=== PATIENT | female | born 1980 | race Caucasian/White ===

== ENCOUNTER 2021-06-15 19:41 | Emergency (ER) | payer MEDICARE, OTHER ==
[~2021-06-15 19:41] MED LIST: BENTYL10 MG PO; CELEBREX **OUT100 MG PO; CELECOXIB50 MG PO; CIPRO500 MG PO; COUMADIN5 MG PO; CYPROHEPTADINE H4 M1 PO; CYPROHEPTADINE H4 MG PO; FLAGYL500 MG PO; FLORA-Q; HYDROCODON-ACE1 EAC4 PO; METHOCARBAMOL500 MG PO; METRONIDAZOLE500 MG PO; NORCO 5-325 TA1 EACH PO; PREDNISONE 10MG10 MG PO; PREDNISONE 20MG20 MG PO; PREDNISONE20 MG PO; PRILOSEC20 MG PO; SKELAXIN800 MG PO; STELARA90 MG/1 ML SC; TRAMADOL HCL50 MG PO; ZOFRAN4 MG PO
[2021-06-15 21:09] LABS: BASOPHIL 0.4 % (0-2); EOSINOPHIL 0.8 % (0-5); HCT 32.7 % (37.0-47.0); HGB 9.6 g/dl (12.5-16.0); LYMPHOCYTE 27.2 % (15-48); MCH 23.7 pg (25.0-31.0); MCHC 29.4 g/dL (32.0-36.0); MCV 80.7 fL (78.0-100.0); MPV 9.1 fL (6.0-9.5); NEUTROPHIL 63.4 % (41-80); NRBC 0; PLT 377 K/uL (150-400); RBC 4.05 M/uL (4.20-5.40); RDW 20.7 % (11.5-14.0); WBC 10.7 K/uL (4.0-10.5)
[2021-06-15 21:20] LABS: ALBUMIN 3.1 g/dL (3.4-5.0); BILIRUBIN - TOTAL 0.2 mg/dL (0.2-1.0); BUN/CREAT RATIO (CALC) 17.1 RATIO; CREATININE 0.76 mg/dL (0.51-0.95); GLOBULIN (CALCULATION) 4.2 g/dL; POTASSIUM 3.7 mmol/L (3.5-5.1); TOTAL PROTEIN 7.3 g/dL (6.4-8.2)
[2021-06-15 21:22] LABS: BILIRUBIN NEGATIVE (NEGATIVE); BLOOD 2+ Ery/uL (NEGATIVE); CLARITY CLEAR (CLEAR); COLOR YELLOW (YELLOW); GLUCOSE (U) NORMAL (NORMAL); LEUKOCYTES NEGATIVE Leu/uL (NEGATIVE); NITRITE NEGATIVE (NEGATIVE); PROTEIN NEGATIVE (NEGATIVE); UROBILINOGEN 0.2 mg/dL (0.2-1.0)
[2021-06-15 21:42] LABS: CALCIUM OXALATE CRYSTALS TRACE
[2021-06-15 21:43] LABS: BACTERIA 1+
[2021-06-15 21:44] LABS: URINARY RBC RARE
== END 2021-06-16 03:55 | disposition other institution (70) ==
LOC: FER 19:41
PROVIDERS: Nurse Practitioner Family
DX: R10.9 Unspecified abdominal pain (principal)
CPT/HCPCS: 36415; 80053; 81001; 82150; 83605; 83690; 85025; J2270; J2405; J7030; Q9967; U0002

== ENCOUNTER 2022-01-02 21:48 | Emergency (ER) | payer MEDICARE, OTHER ==
[~2022-01-02 21:48] MED LIST changes: +ONDANSETRON ODT4 MG PO; +PHENERGAN25 M1 PO
[2022-01-03 00:43] LABS: BASOPHIL 0.1 % (0-2); EOSINOPHIL 0 % (0-5); HCT 35.1 % (37.0-47.0); HGB 11.5 g/dl (12.5-16.0); LYMPHOCYTE 25.9 % (15-48); MCH 30.1 pg (25.0-31.0); MCHC 32.8 g/dL (32.0-36.0); MCV 91.9 fL (78.0-100.0); MONOCYTE 3.3 % (0-12); MPV 9.8 fL (6.0-9.5); NEUTROPHIL 70.1 % (41-80); NRBC 0; PLT 262 K/uL (150-400); RBC 3.82 M/uL (4.20-5.40); RDW 15.3 % (11.5-14.0)
[2022-01-03 00:44] LABS: WBC 7.8 K/uL (4.0-10.5)
[2022-01-03 00:45] LABS: BILIRUBIN NEGATIVE (NEGATIVE); BLOOD 1+ Ery/uL (NEGATIVE); CLARITY CLEAR (CLEAR); COLOR YELLOW (YELLOW); GLUCOSE (U) NORMAL (NORMAL); LEUKOCYTES NEGATIVE Leu/uL (NEGATIVE); NITRITE NEGATIVE (NEGATIVE); PROTEIN NEGATIVE (NEGATIVE); SPECIFIC GRAVITY 1.015 (1.001-1.030); UROBILINOGEN 0.2 mg/dL (0.2-1.0); pH 6.5 (5.0-9.0)
[2022-01-03 00:51] LABS: BACTERIA TRACE; MUCOUS TRACE; URINARY WBC RARE
[2022-01-03 00:52] LABS: ALBUMIN 3.1 g/dL (3.4-5.0); BILIRUBIN - TOTAL 0.1 mg/dL (0.2-1.0); BUN/CREAT RATIO (CALC) 11.5 RATIO; CREATININE 0.87 mg/dL (0.51-0.95); POTASSIUM 3.5 mmol/L (3.5-5.1); TOTAL PROTEIN 7.1 g/dL (6.4-8.2)
[2022-01-03] MEDS ORDERED: PERCOCET 5-3251 EACH PO (03:50)
== END 2022-01-03 04:51 | disposition home or self-care (01) ==
LOC: FER 21:48
PROVIDERS: Internal Medicine
DX: K63.89 Other specified diseases of intestine (principal); R11.2 Nausea with vomiting, unspecified
CPT/HCPCS: 36415; 80053; 81001; 83690; 84145; 85025; J1170; J1642; J2405; J2550; J7030; Q9967

== ENCOUNTER 2022-01-29 19:10 | Emergency (ER) | payer OTHER, MEDICARE ==
[~2022-01-29 19:10] MED LIST changes: +PERCOCET 5-3251 EACH PO
[2022-01-29] MEDS ORDERED: KEFLEX250 MG PO (21:54)
== END 2022-01-29 21:58 | disposition home or self-care (01) ==
LOC: FER 19:10
DX: L03.114 Cellulitis of left upper limb (principal)
CPT/HCPCS: 73130

== ENCOUNTER 2022-05-14 15:51 | Emergency (ER) | payer MEDICARE, OTHER ==
[~2022-05-14 15:51] MED LIST changes: +3IN1 COMMODE; +COUMARIN1 GM PO; +KEFLEX250 MG PO; +MARINOL5 MG PO; +NEURONTIN100 MG PO; +NEURONTIN300 MG PO; +PHENERGAN12.5 M1 PO; +WARFARIN SODIUM3 MG PO
[2022-05-14 17:19] LABS: BASOPHIL 0.1 % (0-2); EOSINOPHIL 0.1 % (0-5); HCT 33.7 % (37.0-47.0); HGB 10.5 g/dl (12.5-16.0); LYMPHOCYTE 10.5 % (15-48); MCH 24.8 pg (25.0-31.0); MCHC 31.2 g/dL (32.0-36.0); MCV 79.7 fL (78.0-100.0); MONOCYTE 3.9 % (0-12); MPV 8.7 fL (6.0-9.5); NEUTROPHIL 84.3 % (41-80); NRBC 0; PLT 361 K/uL (150-400); RBC 4.23 M/uL (4.20-5.40); RDW 20.2 % (11.5-14.0)
[2022-05-14 17:37] LABS: WBC 30.8 K/uL (4.0-10.5)
[2022-05-14 17:41] LABS: LACTIC ACID 1.5 mmol/L (0.4-1.9)
[2022-05-14 17:53] LABS: BILIRUBIN NEGATIVE (NEGATIVE); BLOOD NEGATIVE Ery/uL (NEGATIVE); CLARITY CLEAR (CLEAR); COLOR YELLOW (YELLOW); GLUCOSE (U) NORMAL (NORMAL); LEUKOCYTES TRACE Leu/uL (NEGATIVE); NITRITE NEGATIVE (NEGATIVE); PROTEIN NEGATIVE (NEGATIVE); SPECIFIC GRAVITY 1.015 (1.001-1.030); UROBILINOGEN 0.2 mg/dL (0.2-1.0); pH 7.5 (5.0-9.0)
[2022-05-14 18:28] LABS: ALBUMIN 3.1 g/dL (3.4-5.0); BILIRUBIN - TOTAL 0.2 mg/dL (0.2-1.0); BUN/CREAT RATIO (CALC) 15.9 RATIO; CREATININE 0.69 mg/dL (0.51-0.95); GLOBULIN (CALCULATION) 3.2 g/dL; POTASSIUM 4.8 mmol/L (3.5-5.1); TOTAL PROTEIN 6.3 g/dL (6.4-8.2)
[2022-05-14 18:56] LABS: LYMPHOCYTE(M) 16 % (15-48); MONOCYTE(M) 4 % (0-12); NEUTROPHILS(M) 80 % (41-80)
[2022-05-14 19:06] LABS: PLATELETS ON SMEAR ADEQUATE
== END 2022-05-15 01:03 | disposition other institution (70) ==
LOC: FER 15:51
PROVIDERS: Emergency Medicine
DX: R10.9 Unspecified abdominal pain (principal); R11.2 Nausea with vomiting, unspecified; Z28.310 Unvaccinated for COVID-19
CPT/HCPCS: 36415; 80053; 81001; 83605; 83690; 84145; 85025; 86140; 87040; 87088; J1170; J2405; J2543; J2550; J7030; Q9967